=== PATIENT | male | born 1995 | race Caucasian/White ===

== ENCOUNTER 2016-06-22 16:56 | Emergency (ER) | payer BC ==
[~2016-06-22] VITALS: Ht 175.3 cm; Wt 73.5 kg
[2016-06-22 17:01] VITALS: BP 117/74; PULSE 97; TEMP 37.3; O2SAT 95; Ht 175.3 cm; Wt 73.5 kg
[2016-06-22] MEDS ORDERED: PENI-82 PO (17:18)
[2016-06-22] MEDS ORDERED: IBUP-103 PO (17:19)
[2016-06-22] MEDS ORDERED: KETOROLAC TROMETHAMINE 30 MG/ML VIAL IV STA (17:20)
--- NOTE | 2016-06-22 17:20 | EMERGENCY ROOM VISIT NOTE ---
History Report prepared by Leodan: Yancy Schmitt Under the Supervision of: Dr. Gomez Rodriguez D.O. First contact with patient: 17:07 Chief Complaint: SORETHROAT Stated Complaint: PAINFUL SORE THROAT, DIZZY, FATIGUE, FEVER History of Present Illness The patient is a 21 year old male who presents to the Emergency Room with complaints of a persistent sore throat that began several days ago. He currently rates his discomfort as a 7/10 in severity. The patient states that he was diagnosed with strep throat at [facility], but states that he had no swabbing done. He states that he was placed on Penicillin, noting that he has been taking it since Saturday. The patient denies noticing any spots on his hands or feet. He states that he has had a fever higher than 101 degrees Fahrenheit, and additionally associates dizziness and fatigue. The patient states that he has had trouble eating due to the pain. Source of History: patient Onset: several days ago Position: throat Symptom Intensity: 7/10 Quality: other (sore) Timing: other (persistent) Associated Symptoms: + fatigue, + fevers Note: Associated Symptoms: dizziness Review of Systems See above for pertinent positives & negatives. A total of 10 systems reviewed and were otherwise negative. Family History FH: cancer Social History Smoking Status: Never Smoker Smokeless Tobacco Use: No Marital Status: single Housing Status: lives with roommate Occupation Status: [employer] student Current/Historical Medications Scheduled Ibuprofen Tab (Advil), 400 MG PO PRN UD Penicillin V Potassium (Veetids), 500 MG PO TID Scheduled PRN Acetaminophen (Acetaminophen), 2 TAB PO Q8H PRN for Pain Ibuprofen Tab (Motrin), 800 MG PO Q8H PRN for Pain Lidocaine Hcl (Mouth-Throat) (Lidocaine Viscous), 15 ML PO QID PRN for SORE THROAT Allergies Coded Allergies: No Known Allergies (Unverified , 06/22/16) Physical Exam Vital Signs Date Time Temp Pulse Resp B/P Pulse Ox O2 Delivery O2 Flow Rate FiO2 06/22/16 17:01 37.3 97 16 117/74 95 Physical Exam GENERAL: Patient is well appearing and in no acute distress. HEENT: Herpangina of the oropharynx No acute trauma, normocephalic atraumatic, mucous membranes moist, no nasal congestion, no scleral icterus. NECK: No stridor, no adenopathy, no meningismus, trachea is midline. LUNGS: No dyspnea. Clear to auscultation and equal bilaterally. No wheeze, no rhonchi. HEART: Regular rate and rhythm. No murmurs, rubs, gallops appreciated. ABDOMEN: Soft, nontender, bowel sounds positive, no masses appreciated, no peritonitis. BACK: No midline tenderness, no CVA tenderness EXTREMITIES: Normal motion all extremities, no cyanosis, no edema. NEUROLOGIC: Alert and oriented, no acute motor or sensory deficits, no focal weakness, cranial nerves grossly intact. SKIN: No rash, no jaundice, no diaphoresis. Medical Decision & Procedures ED Course 1708: The patient was evaluated in room D9. A complete history and physical exam was performed. I discussed the exam findings with him and his mother and I discussed the treatment plan. They verbalized complete understanding and agreement. The patient is ready to go home once he receives his shot of Toradol. 1720: Ordered Toradol Inj 30 mg IM. Medical Decision Differential diagnosis include strep throat, herpangina, and mono. Patient is a 21-year-old male who presents to the emergency department with his mother. Patient was recently diagnosed by [facility] with streptococcal pharyngitis, presumed, and started on Pen-Vee K. Patient's pain has gotten worse since concern for another etiology of his sore throat. Physical exam he has obvious ulcers consistent with herpangina. He is taking 3 days of the Pen-Vee K and reported a fever greater than 101 at the start of his symptomatology. I've advised him to continue to take his penicillin to avoid an incomplete treatment of a possible concomitant streptococcal pharyngitis. He's been prescribed high-dose Motrin, Tylenol, viscous lidocaine and encouraged to increase his fluid intake. He is discharged home in improved fashion Impression Primary Impression: Herpangina Additional Impressions: Sorethroat Coxsackie virus infection Scribe Attestation The scribe's documentation has been prepared under my direction and personally reviewed by me in its entirety. I confirm that the note above accurately reflects all work, treatment, procedures, and medical decision making performed by me. Departure Information Dispostion Home / Self-Care Prescriptions Lidocaine Hcl (Mouth-Throat) (LIDOCAINE VISCOUS) 2 % Maribel 15 ML PO QID Y for SORE THROAT, #100 ML Prov: Gomez Rodriguez D.O. 06/22/16 Acetaminophen (ACETAMINOPHEN) 500 Mg Tab 2 TAB PO Q8H Y for Pain for 15 Days, #90 TAB Prov: Gomez Rodriguez D.O. 06/22/16 Ibuprofen Tab (MOTRIN) 800 Mg Tab 800 MG PO Q8H Y for Pain, #30 TAB Prov: Gomez Rodriguez D.O. 06/22/16 Referrals No Doctor, Assigned (PCP) [facility] [address] Forms HOME CARE DOCUMENTATION FORM, IMPORTANT VISIT INFORMATION Patient Instructions ED Hand Foot Mouth Disease Ch, My [facility] Additional Instructions Stay well-hydrated, finish the penicillin which you have already started. Use Tylenol and Motrin for pain. Use the viscous lidocaine as needed for the sore throat. School Instructions Return To School: 1 day (06/22/2016) Problem Qualifiers
[2016-06-22] MEDS ORDERED: LIDO2SOL19 PO (17:26)
[2016-06-22] MEDS ORDERED: IBUP-1451 PO (17:26)
[2016-06-22] MEDS ORDERED: ACET500T57 PO (17:26)
[2016-06-22] MEDS ORDERED: KETOROLAC TROMETHAMINE 60 MG/2 ML VIAL ONE (17:45)
[2016-06-22] MEDS ORDERED: NURSING VERBAL MED ORDER ONE (17:45)
== END 2016-06-22 17:54 | disposition home or self-care (01) ==
LOC: C.EDB 16:57 → C.EDD 17:54
DX: B08.5 Enteroviral vesicular pharyngitis (principal); J02.9 Acute pharyngitis, unspecified; B34.1 Enterovirus infection, unspecified